=== PATIENT | male | born 2000 | race Caucasian/White ===

== ENCOUNTER 2019-06-03 19:35 | Emergency (ER) | payer OTHER ==
[~2019-06-03] VITALS: Ht 180 cm; Wt 87.0 kg
[2019-06-03] MEDS ORDERED: BENZ-13 PO (20:09)
--- NOTE | 2019-06-03 20:09 | ED Cough/URI ---
General Chief Complaint: Cough/Cold/Flu Symptoms Stated Complaint: SORE THROAT/SNUFFY NOSE Nursing Triage Note: PT COMPLAINING OF A COUGH, SORE THROAT, AND NASAL DRAINAGE. PT SEEN IN URGENT CARE A FEW DAYS AGO AND STARTED AN ANTIBIOTIC Sepsis Screen: No Definite Risk Source: patient, family Exam Limitations: no limitations History of Present Illness Date Seen by Provider: Jun 03, 2019 Time Seen by Provider: 19:50 Initial Comments The patient presents ER by private conveyance with chief complaint of the past week of no fevers or chills but having a sore throat nasal congestion, sinus pressure. He went to urgent care 4 days ago and they told him they thought he had strep throat but did not do any testing or swabs. They put him on amoxicillin and he's been taking for the past 4 days not feeling any better. No ear pain or drainage. No bloody nose. No vomiting diarrhea or constipation. No other significant medical history. No wheezing or shortness of breath. No feeling of compression in his throat or airway. Allergies and Home Medications Allergies Coded Allergies: No Known Drug Allergies (Unverified , 06/03/19) Patient Home Medication List Home Medication List Reviewed: Yes Review of Systems Review of Systems Constitutional: No chills, No fever; malaise EENTM: No ear pain, No eye pain, No tearing, No vision loss Respiratory: cough, phlegm, short of breath; No wheezing Cardiovascular: No chest pain, No edema Gastrointestinal: No abdominal pain, No constipation, No diarrhea Genitourinary: No discharge, No dysuria Musculoskeletal: No back pain, No joint pain All Other Systems Reviewed Negative Unless Noted: Yes Past Kdvdgfw-Vzctyf-Fpllno Hx Patient Social History Alcohol Use: Denies Use Recreational Drug Use: No Smoking Status: Never a Smoker 2nd Hand Smoke Exposure: No Recent Foreign Travel: No Contact w/Someone Who Travel: No Recent Infectious Disease Expo: No Recent Hopitalizations: No Physical Abuse: No Sexual Abuse: No Mistreated: No Fear: No Past Medical History Surgeries: Yes Appendectomy Respiratory: No Cardiac: No Neurological: No Genitourinary: No Gastrointestinal: No Musculoskeletal: No Endocrine: No HEENT: No Cancer: No Psychosocial: No Integumentary: No Blood Disorders: No Physical Exam Vital Signs - First Documented 06/03/19 19:40 Temp 36.0 Pulse 75 Resp 16 B/P (MAP) 155/77 (103) Pulse Ox 98 O2 Delivery Room Air Capillary Refill : Less Than 3 Seconds Height: '" Weight: lbs. oz. kg; 26.00 BMI Method: General Appearance: WD/WN, no apparent distress Eyes: Bilateral Eye Normal Inspection, Bilateral Eye PERRL, Bilateral Eye EOMI HEENT: PERRL/EOMI, TMs normal, other (negative for maxillary sinus tenderness. Mild congestion of the nasal mucosa. Mild erythema and injection in the posterior retropharynx. Mild tonsillar enlargement without exudate) Neck: non-tender, full range of motion, supple, normal inspection Respiratory: lungs clear, normal breath sounds, no respiratory distress, no accessory muscle use Cardiovascular: normal peripheral pulses, regular rate, rhythm Neurologic/Psychiatric: alert, normal mood/affect, oriented x 3 Skin: normal color, warm/dry Progress/Results/Core Measures Suspected Sepsis Recent Fever Within 48 Hours: No Infection Criteria Present: None New/Unexplained Altered Menta: No Sepsis Screen: No Definite Risk SIRS Temperature: Pulse: 75 Respiratory Rate: 16 Blood Pressure 155 /77 Mean: 103 Results/Orders Vital Signs/I&O 06/03/19 19:40 Temp 36.0 Pulse 75 Resp 16 B/P (MAP) 155/77 (103) Pulse Ox 98 O2 Delivery Room Air Capillary Refill : Less Than 3 Seconds Blood Pressure Mean: 103 POS Progress Note : Time: 20:06 Progress Note Suspect viral illness. Encourage him to complete the antibiotics since strep was diagnosed. Saltwater gargles, Chloraseptic spray etc. Departure Impression Primary Impression: Viral upper respiratory tract infection with cough Disposition: HOME, SELF-CARE Condition: Stable Departure-Patient Inst. Decision time for Depature: 20:07 Referrals: SELFCHERYL MD (PCP/Family) Primary Care Physician Patient Instructions: Viral Upper Respiratory Infection, Adult (DC) Add. Discharge Instructions: Plan to complete the antibiotics as prescribed. Hot steamy showers or baths, hot tea with lemon and honey, vapor rubs such as Vicks or Mentholatum. Humidifiers. Tylenol and ibuprofen as necessary for body aches or headache. Chloraseptic spray or throat lozenges for sore throat. Salt water gargle as often as necessary for sore throat. Tessalon Perles 1 capsule every 6 hours as needed for cough. Tessalon will not make you drowsy and is safe to drive or work with. If not seeing improvement by 7-10 days follow-up with primary care. All discharge instructions reviewed with patient and/or family. Voiced understanding. Scripts Benzonatate (Tessalon Perle) 100 Mg Capsule 100 MG PO Q6H PRN for COUGH, #30 CAP 0 Refills Prov: HOSEA LOZADA 06/03/19 Work/School Note: Work Release Form Date Seen in the Emergency Department: Jun 03, 2019 Return to Work: Jun 04, 2019 Restrictions: No Restrictions HOSEA LOZADA Jun 03, 2019 20:09 POS
[2019-06-03 20:12] VITALS: BP 155/77
== END 2019-06-03 20:12 | disposition home or self-care (01) ==
LOC: MERGE 19:40 → ER FS 19:40
DX: J06.9 Acute upper respiratory infection, unspecified (principal); Z90.49 Acquired absence of other specified parts of digestive tract
CPT/HCPCS: 99282

== ENCOUNTER 2019-07-02 07:13 | Emergency (ER) | payer OTHER ==
[~2019-07-02] VITALS: Ht 177 cm; Wt 87.5 kg
[~2019-07-02 07:13] MED LIST: BENZ-13 PO
--- NOTE | 2019-07-02 07:39 | ED Upper Extremity ---
General Chief Complaint: Upper Extremity Stated Complaint: LT WRIST PAIN History of Present Illness Date Seen by Provider: Jul 02, 2019 Time Seen by Provider: 07:34 Initial Comments Patient is here left hand and wrist pain with numbness and tingling fingers 4 and 5 has had problems over the last week or so uses her hands a lot at work is right handed but has had more numbness and tingling extending even into the middle finger. 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 Allergies and Home Medications Allergies Coded Allergies: No Known Drug Allergies (Unverified , 06/04/19) Home Medications Benzonatate 100 Mg Capsule, 100 MG PO Q6H PRN for COUGH Prescribed by: HOSEA LOZADA on 06/03/192008 Patient Home Medication List Home Medication List Reviewed: Yes Review of Systems Constitutional: No chills, No fever, No malaise Musculoskeletal: No back pain; joint pain; No joint swelling, No muscle pain, No muscle stiffness, No neck pain Skin: No change in color, No lesions Psychiatric/Neurological: Numbness, Paresthesia, Tingling, Weakness Past Fhynocs-Kajpoz-Qwkkmo Hx Past Med/Social Hx: Reviewed Nursing Past Med/Soc Hx Patient Social History Alcohol Use: Denies Use Recreational Drug Use: No Smoking Status: Current Everyday Smoker Type Used: Cigarettes 2nd Hand Smoke Exposure: No Recent Foreign Travel: No Recent Hopitalizations: No Physical Abuse: No Sexual Abuse: No Mistreated: No Fear: No Past Medical History Surgeries: Yes Appendectomy Respiratory: No Cardiac: No Neurological: No Genitourinary: No Gastrointestinal: No Musculoskeletal: No Endocrine: No HEENT: No Cancer: No Psychosocial: No Integumentary: No Blood Disorders: No Physical Exam Vital Signs Capillary Refill : Height, Weight, BMI Height: '" Weight: lbs. oz. kg; 26.00 BMI Method: General Appearance: WD/WN, no apparent distress Wrist: Yes normal inspection, Yes no evidence of injury, Yes normal ROM; No limited ROM, No swelling Hand: normal inspection, bone tenderness, limited ROM Neurologic/Tendon: normal motor functions, sensory deficit, other (positive Phalen and Tinel sign) Neurologic/Psychiatric: alert, normal mood/affect, oriented x 3 Skin: normal color, warm/dry Departure Impression Primary Impression: Carpal tunnel syndrome Disposition: HOME, SELF-CARE Condition: Stable Departure-Patient Inst. Referrals: SELF,CHERYL BUCHANAN (PCP/Family) Primary Care Physician Patient Instructions: Carpal Tunnel Exercises, Carpal Tunnel Syndrome Scripts Methylprednisolone (Medrol) 4 Mg Tab.ds.pk 4 MG PO UD for 6 Days, #21 PKG 0 Refills PER DOSE PACK INSTRUCTIONS Prov: AMY HILL JR, MD 07/02/19 AMY HILL JR, MD Jul 02, 2019 07:39
[2019-07-02] MEDS ORDERED: METH4TAB PO (07:40)
[2019-07-02 07:43] VITALS: BP 152/85
== END 2019-07-02 07:45 | disposition home or self-care (01) ==
LOC: EDUNIT# 07:13 → ER FS 07:15
DX: G56.02 Carpal tunnel syndrome, left upper limb (principal); F17.210 Nicotine dependence, cigarettes, uncomplicated; Z90.49 Acquired absence of other specified parts of digestive tract
CPT/HCPCS: 99282

== ENCOUNTER 2022-05-08 11:44 | Emergency (ER) | payer OTHER ==
[~2022-05-08] VITALS: Ht 182.8 cm; Wt 106.7 kg
[~2022-05-08 11:44] MED LIST changes: +METH4TAB PO
[2022-05-08] MEDS ORDERED: CYCLOBENZAPRINE 10 MG (FLEXERIL) TAB PO STA (11:55)
--- NOTE | 2022-05-08 12:02 | ED Back Pain ---
General Chief Complaint: Back Problems Stated Complaint: BACK PAIN Source of Information: Patient History of Present Illness Date Seen by Provider: May 08, 2022 Time Seen by Provider: 11:46 Initial Comments 22-year-old male presenting with complaints of sudden onset of low back pain with radiation down his left leg. He states he has a electric shock or pain sensation that goes all the way down to his ankle on the left leg. This came on suddenly yesterday while he was standing around 1030 or 11:00 in the morning. He works at [employer] but denies any acute trauma or heavy lifting. He states he lifts 20 pound boxes. He has had a previous episode like this where he woke up with pain. That was earlier this year. He states at the time it went away in a few days. He had actually failed a physical at that time for a job because of the pain in his back. He denies any loss of bowel or bladder control. He has tried taking ibuprofen 800 mg approximately an hour prior to arrival and states it has not made any significant improvement. He felt the pain was worse this morning when he was lying in bed but is doing a lot better now. He is due to get custody of his 10 month-old son this evening so his mom made him come to the emergency department to be evaluated before he had to start caring for his child again. He did see a chiropractor on Tuesday and that he did an adjustment stating that his hips were off a little. He continues to have pain despite the adjustment. Location: Lumbar Spine Timing/Duration: 1 Day Severity: Moderate (8 out of 10 at worst, 5 out of 10 currently) Pain/Injury Location: Back (pain to low back with radiation down left leg) Radiation: Other (left leg to his ankle) Method of Injury: Unknown Modifying Factors: Worse With Movement; Improves With Pain Medication (ibuprofen helps some) Associated Symptoms: No muscle spasms, No fever, No weakness, No numbness in legs/feet, No tingling in legs/feet, No sensory/motor loss; lower back pain; No loss of bladder control, No loss of bowel control Allergies and Home Medications Allergies Coded Allergies: No Known Drug Allergies (Unverified , 06/04/19) Patient Home Medication List Home Medication List Reviewed: Yes Benzonatate (Tessalon Perle) 100 Mg Capsule, 100 MG PO Q6H PRN for COUGH Prescribed by: HOSEA LOZADA on 06/03/192008 Cyclobenzaprine HCl (Cyclobenzaprine HCl) 10 Mg Tablet, 10 MG PO Q12H PRN for SPASMS Prescribed by: BRANDON DE LA O on 05/08/22 1246 Ibuprofen (Ibuprofen) 800 Mg Tablet, 800 MG PO Q8H PRN for PAIN Prescribed by: BRANDON DE LA O on 05/08/22 1246 Methylprednisolone (Medrol) 4 Mg Tab.ds.pk, 4 MG PO UD Prescribed by: AMY HILL on 07/02/19 0740 Review of Systems Constitutional: No chills, No fever EENTM: no symptoms reported Respiratory: no symptoms reported Cardiovascular: no symptoms reported Gastrointestinal: no symptoms reported Genitourinary: no symptoms reported Musculoskeletal: see HPI Skin: No change in color, No rash Psychiatric/Neurological: Denies Numbness, Denies Paresthesia, Denies Weakness Past Gijajar-Ancirq-Mkdcld Hx Patient Social History Tobacco Use?: No Substance use?: No Alcohol Use?: No Pt feels they are or have been: No Past Medical History Surgery/Hospitalization HX: Denies Surgeries: Yes Appendectomy Respiratory: No Cardiac: No Neurological: No Genitourinary: No Gastrointestinal: No Musculoskeletal: No Endocrine: No HEENT: No Cancer: No Psychosocial: No Integumentary: No Blood Disorders: No Physical Exam Vital Signs Vital Signs - First Documented 05/08/22 11:57 Temp 36.2 Pulse 86 Resp 16 B/P (MAP) 166/89 (114) Pulse Ox 100 O2 Delivery Room Air Capillary Refill : Height, Weight, BMI Height: '" Weight: lbs. oz. 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 Norm as Tested, Other (bilateral symmetrical DTR 2/4 patellar and achilles) Skin: Normal Color, Warm/Dry Progress/Results/Core Measures Results/Orders My Orders Orders - BRANDON DE LA O MD Cyclobenzaprine Tablet (Flexeril Tablet) (05/08/22 11:55) Ct Lumbar Spine Wo (05/08/22 11:56) Vital Signs/I&O 05/08/22 05/08/22 11:57 12:47 Temp 36.2 36.2 Pulse 86 86 Resp 16 16 B/P (MAP) 166/89 (114) 166/89 Pulse Ox 100 100 O2 Delivery Room Air Room Air Progress Progress Note #1: Progress Note D/w patient about giving him a muscle relaxer while waiting on the imaging of his spine to look for acute bony abnormality. 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 As he denies trauma and was just standing at work when this happened will order CT scan to look for acute bony abnormality, mass, tumor, arthritis around nerves from spinal cord. This is his second episode this year of spontaneous pain in low back radiating down his leg. Progress Note #2: Time: 12:[address] scan shows disc protrusion pressing against sciatic nerve on left. Will cont inue with NSAIDS and muscle relaxer to try and help with rest and inflammation of the paraspinal muscles. Encouraged to check with clinic and see about setting up physical therapy and may need pain management for injections if not improving. Limit activity to avoid things that exacerbate his pain. Diagnostic Imaging Diagonstic Imaging: CT Plain Films/CT/US/NM/MRI: other (lumbar spine) Comments NAME: JAMES VASQUEZ [facility] REC#: [id number] PT STATUS: REG ER : 2000 PHYSICIAN: BRANDON DE LA O MD ADMIT DATE: 05/08/22/ER FS Draft Date of Exam:05/08/22 CT LUMBAR SPINE WO PROCEDURE: CT lumbar spine without contrast. TECHNIQUE: Multiple contiguous axial images were obtained through the lumbar spine without the use of intravenous contrast. Sagittal and coronal reformations were then performed. Auto Exposure Controls were utilized during the CT exam to meet ALARA standards for radiation dose reduction. INDICATION: Low back pain with left lower extremity radiculopathy. COMPARISON: None available. FINDINGS: Normal alignment of the lumbar spine. There is no spondylolisthesis. No fracture or concerning marrow replacing process. At L5-S1, there is a left paracentral disc protrusion which narrows the left lateral recess and potentially contacts the left S1 nerve root. No additional sites of potential nerve impingement by CT. Visualized aspects of the retroperitoneum are normal. IMPRESSION: Left paracentral disc protrusion at L5-S1 potentially compresses the left S1 nerve root. Dictated on workstation # [id number] Dict: 05/08/22 1214 Trans: 05/08/22 1226 [id number] Interpreted by: LEROY ARMSTRONG MD Electronically signed by: Reviewed: Reviewed by Me Departure Impression Primary Impression: Low back pain with left-sided sciatica Qualified Codes: M54.42 - Lumbago with sciatica, left side Additional Impression: Bulging lumbar disc Disposition: HOME, SELF-CARE Condition: Stable Departure-Patient Inst. Decision time for Depature: 12:43 Referrals: CHERYL MATHUR MD (PCP) Primary Care Physician Patient Instructions: Sciatica ED, Low Back Pain ED Add. Discharge Instructions: Continue taking Ibuprofen to help with pain and inflammation. You may also take Acetaminophen 650 mg every 6 hours as needed for additional pain relief. Use the muscle relaxer to help with spasms and getting better rest. Check with Dr. Mathur or [facility] provider about physical therapy to help with the bulging disc and back pain with sciatica. Limit your activity to avoid doing things that make the pain worse. All discharge instructions reviewed with patient and/or family. Voiced understanding. Scripts Cyclobenzaprine HCl (Cyclobenzaprine HCl) 10 Mg Tablet 10 MG PO Q12H PRN for SPASMS for 10 Days, #20 TAB 0 Refills Prov: BRANDON DE LA O MD 05/08/22 Ibuprofen (Ibuprofen) 800 Mg Tablet 800 MG PO Q8H PRN for PAIN for 10 Days, #30 TAB 0 Refills Prov: BRANDON DE LA O MD 05/08/22 Work/School Note: Work Release Form Date Seen in the Emergency Department: May 08, 2022 Return to Work: May 11, 2022 Restrictions: Need Release from Doctor Other Restrictions Listed Below: Light duty, no lifting over 10 pounds until clear by doctor BRANDON DE LA O MD May 08, 2022 12:02
--- NOTE | 2022-05-08 12:26 | Diagnostic Imaging Report ---
PROCEDURE: CT lumbar spine without contrast. TECHNIQUE: Multiple contiguous axial images were obtained through the lumbar spine without the use of intravenous contrast. Sagittal and coronal reformations were then performed. Auto Exposure Controls were utilized during the CT exam to meet ALARA standards for radiation dose reduction. INDICATION: Low back pain with left lower extremity radiculopathy. COMPARISON: None available. FINDINGS: Normal alignment of the lumbar spine. There is no spondylolisthesis. No fracture or concerning marrow replacing process. At L5-S1, there is a left paracentral disc protrusion which narrows the left lateral recess and potentially contacts the left S1 nerve root. No additional sites of potential nerve impingement by CT. Visualized aspects of the retroperitoneum are normal. IMPRESSION: Left paracentral disc protrusion at L5-S1 potentially compresses the left S1 nerve root. Dictated by: Dictated on workstation # [id number]
[2022-05-08] MEDS ORDERED: IBUP-1780 PO (12:46)
[2022-05-08] MEDS ORDERED: CYCL10TA25 PO (12:46)
[2022-05-08 12:47] VITALS: BP 166/89
== END 2022-05-08 12:47 | disposition home or self-care (01) ==
LOC: EDUNIT# 11:44 → ER FS 11:45
DX: M54.42 Lumbago with sciatica, left side (principal); M51.36 Other intervertebral disc degeneration, lumbar region; Z28.310 Unvaccinated for COVID-19
CPT/HCPCS: 72131

== ENCOUNTER 2022-09-05 17:44 | Emergency (ER) | payer OTHER ==
[~2022-09-05] VITALS: Ht 198 cm; Wt 95.0 kg
[~2022-09-05 17:44] MED LIST changes: +CYCL10TA25 PO; +IBUP-1780 PO
[2022-09-05 17:58] VITALS: BP 152/65
[2022-09-05] MEDS ORDERED: KETOROLAC 15 MG/ML VIAL IM ONE (18:00)
--- NOTE | 2022-09-05 18:01 | ED General ---
General Stated Complaint: SORE THROAT; COUGH; NECK PAIN; FEVER Source of Information: Patient Exam Limitations: No Limitations History of Present Illness Date Seen by Provider: Sep 05, 2022 Time Seen by Provider: 17:48 Initial Comments 22-year-old male with no pertinent past medical history coming in due to 1 week of sore throat, couple days of fever up to 103, no cough. Also denies any vomiting or diarrhea. Went to the urgent care this morning and had a negative COVID, flu, and rapid strep test. He is unsure if they do a strep culture. He last had Tylenol a couple hours ago. Otherwise denying any other acute complaints. Allergies and Home Medications Allergies Coded Allergies: No Known Drug Allergies (Unverified , 06/04/19) Patient Home Medication List Home Medication List Reviewed: Yes Benzonatate (Tessalon Perle) 100 Mg Capsule, 100 MG PO Q6H PRN for COUGH Prescribed by: HOSEA LOZADA on 06/03/192008 Cyclobenzaprine HCl (Cyclobenzaprine HCl) 10 Mg Tablet, 10 MG PO Q12H PRN for SPASMS Prescribed by: BRANDON DE LA O on 05/08/22 1246 Ibuprofen (Ibuprofen) 800 Mg Tablet, 800 MG PO Q8H PRN for PAIN Prescribed by: BRANDON DE LA O on 05/08/22 1246 Methylprednisolone (Medrol) 4 Mg Tab.ds.pk, 4 MG PO UD Prescribed by: AMY HILL on 07/02/19 0740 Review of Systems Review of Systems Constitutional: fever EENTM: throat pain; No ear discharge, No hoarseness, No mouth swelling, No nose congestion, No throat swelling Respiratory: No cough Cardiovascular: No chest pain Gastrointestinal: No abdominal pain Genitourinary: no symptoms reported Musculoskeletal: no symptoms reported Skin: no symptoms reported Psychiatric/Neurological: No Symptoms Reported Past Wpybyst-Udbhcp-Vkfyel Hx Patient Social History Tobacco Use?: No Use of E-Cig and/or Vaping dev: Yes E-Cig or Vaping type used: Nicotine Substance use?: No Alcohol Use?: Yes Alcohol Frequency: Once in a while Past Medical History Surgery/Hospitalization HX: Appendectomy Surgeries: Yes Appendectomy Respiratory: No Cardiac: No Neurological: No Genitourinary: No Gastrointestinal: No Musculoskeletal: No Endocrine: No HEENT: No Cancer: No Psychosocial: No Integumentary: No Blood Disorders: No Physical Exam Vital Signs Vital Signs - First Documented 09/05/22 17:58 Temp 36.2 Pulse 81 Resp 16 B/P (MAP) 152/65 (94) Pulse Ox 99 O2 Delivery Room Air Capillary Refill : Height, Weight, BMI Height: '" Weight: lbs. oz. kg; 31.00 BMI Method: General Appearance: No Apparent Distress, WD/WN Eyes: Bilateral Eye Normal Inspection HEENT: PERRL/EOMI, TMs Normal, Other (Oropharyngeal erythema without exudate, no enlargement, uvula is midline, no trismus, normal voice) Neck: Full Range of Motion, Normal Inspection, Non Tender, Supple, Other (No meningismus) Respiratory: Chest Non Tender, Lungs Clear, Normal Breath Sounds, No Accessory Muscle Use, No Respiratory Distress Cardiovascular: Regular Rate, Rhythm, No Edema, Normal Peripheral Pulses Gastrointestinal: Normal Bowel Sounds, Non Tender, Soft; No Distended, No Guarding Back: Normal Inspection, No CVA Tenderness Extremity: Normal Capillary Refill, Normal Inspection, Normal Range of Motion, Non Tender, No Calf Tenderness, No Pedal Edema Neurologic/Psychiatric: Alert, No Motor/Sensory Deficits, Normal Mood/Affect Skin: Normal Color, Warm/Dry Lymphatic: No Adenopathy Progress/Results/Core Measures Suspected Sepsis SIRS Temperature: Pulse: Respiratory Rate: Blood Pressure / Mean: Results/Orders Lab Results Laboratory Tests Test 09/05/22 17:57 Range/Units Group A Streptococcus Screen NEGATIVE NEGATIVE My Orders Orders - MICHELLE HERNÁNDEZ MD Rapid Strep A Screen (09/05/22 17:56) Ketorolac Injection (Toradol Injection) (09/05/22 18:00) Dexamethasone Oral Soln (Ed) (Decadron I (09/05/22 17:56) Medications Given in ED Current Medications Medications Dose Ordered Sig/Kari Route Start Time Stop Time Status Last Admin Dose Admin Ketorolac Tromethamine 15 mg ONCE ONCE IM 09/05/22 18:00 09/05/22 18:01 DC 09/05/22 18:04 15 MG Vital Signs/I&O 09/05/22 17:58 Temp 36.2 Pulse 81 Resp 16 B/P (MAP) 152/65 (94) Pulse Ox 99 O2 Delivery Room Air Capillary Refill : Progress Note : Progress Note 22-year-old male with above history coming in due to sore throat and fever. ABCs were intact and vitals were stable on presentation. Physical exam with tonsillar erythema without exudate or swelling. Normal voice, no swelling, no midline changes in his throat, and otherwise no red flags for deep space infection in his throat. He has no meningismus and otherwise appears well with no clinical signs of meningitis. Rapid strep test sent here so that we can have a culture done. Patient given IM Toradol as well as oral dexamethasone to pote ntially help with his sore throat. Flu and COVID test were already negative earlier today. Patient specifically requesting a Monospot test, I discussed with the patient that he is well-appearing, does not have any spleen enlargement on my exam, the tests can be inaccurate, and overall I do not think it will help us since it would just be expectant management even if he had mono. I believe the patient is otherwise stable for discharge with outpatient follow- up. He was sent home with strict return precautions. Departure Impression Primary Impression: Sore throat (viral) Disposition: 01 HOME, SELF-CARE Condition: Stable Departure-Patient Inst. Decision time for Depature: 18:13 Referrals: CHERYL SHERIDAN MD (PCP) Primary Care Physician Patient Instructions: Sore Throat, Adult ED Add. Discharge Instructions: Your rapid strep test here was also negative. They will send this for culture, if it grows back anything positive, they will call you and put you on antibiotics. Unfortunately the test for mono is not a very good test that we have here, not very sensitive or specific. If you had mono, it would just be expectant management with things such as ibuprofen and Tylenol and time to get b maxine. Expect fatigue, fever for few days, sore throat. If you get to the point where you cannot swallow at all, you are unable to really speak, cannot open your mouth, or any significant concerns such as that, I would want you to present back to the ER. Take 600 mg of ibuprofen every 6 hours and 1000 mg of Tylenol every 6 hours for the next several days until you start feeling better. Work/School Note: Work Release Form Date Seen in the Emergency Department: Sep 05, 2022 Return to Work: Sep 07, 2022 Restrictions: Return-No Fever (24hrs) MICHELLE HERNÁNDEZ MD Sep 05, 2022 18:01
== END 2022-09-05 18:23 | disposition home or self-care (01) ==
LOC: EDUNIT# 17:44 → ER FS 17:46
DX: J02.8 Acute pharyngitis due to other specified organisms (principal); F17.290 Nicotine dependence, other tobacco product, uncomplicated; Z28.310 Unvaccinated for COVID-19
CPT/HCPCS: 87430; 99284